=== PATIENT | male | born 1970 | race Caucasian/White ===

== ENCOUNTER 2022-01-07 18:15 | Emergency (ER) | payer SELFPAY ==
[2022-01-07 18:37] VITALS: PULSE 71; RESP 20; TEMP 37.6; BMI 21.2
[2022-01-07 20:24] VITALS: BP 139/100; PULSE 79; RESP 16; TEMP 37.1; O2SAT 98; BMI 20.6
--- NOTE | 2022-01-07 20:36 | HMH.EDUTC ---
[facility] [place] Disposition Clinical Impression: Abscess of right axilla Cellulitis Qualifiers: Site of cellulitis: extremity Site of cellulitis of extremity: axilla Laterality: right Qualified Code(s): L03.111 - Cellulitis of right axilla Disposition: Home, Self-Care Condition on Discharge: Good Instructions: Cellulitis, Boil Additional Instructions: Follow up in 3 days to have the packing removed and the wound rechecked. Also, we will be culturing the drainage from the wound and that will be complete in 3 days. This will tell which antibiotic will treat the infection best. So, we will probably be able to stop one of the antibiotics then. Take the antibiotics as directed. Follow up with your regular doctor. Take ibuprofen for pain. I sent in a prescription for it to your pharmacy. GO TO THE ER FOR ANY WORSENING SYMPTOMS OR CONCERNS Prescriptions: Amoxicillin [Amoxicillin 500mg Tab] 500 mg PO TID 10 Days #30 tab Transmission Status: Received by [id number] Sulfamethoxazole/Trimethoprim [Bactrim DS tablet] 1 each PO BID 10 Days #20 tab Transmission Status: Received by [id number] Referrals: Provider,Referral, [Primary Care Provider] - Forms: Work/School Release Time of Disposition: 22:15 Medical Decision Making - Medical Records Medical records reviewed: No: I reviewed the patient's medical records. - Daniel Inquiry Pt receiving controlled substance: No Vital Signs: 01/07/22 18:37 01/07/22 20:24 01/07/22 22:27 Temperature 99.7 F H 98.8 F 98.8 F Temperature Source Oral Oral Pulse Rate 79 Pulse Rate [Radial] 71 79 Respiratory Rate 20 16 16 Blood Pressure 139/100 H Blood Pressure [Right Arm] 139/100 H Blood Pressure Mean [Right Arm] 113 02 Sat by Pulse Oximetry 98 Oxygen Delivery Method Room Air Orders (Tests/Meds): ED MEDICATIONS Discontinued Medications Generic Name Dose Route Start Last Admin Trade Name Freq PRN Reason Stop Dose Admin Amoxicillin 500 mg 01/07/22 22:12 01/07/22 22:18 Amoxicillin 500mg Capsule PO 01/07/22 22:13 500 mg ONCE ONE Administration Ibuprofen 800 mg 01/07/22 22:12 01/07/22 22:23 Ibuprofen 400 Mg Tablet PO 01/07/22 22:13 Not Given ONCE ONE Ondansetron HCl 4 mg 01/07/22 22:16 01/07/22 22:18 Ondansetron 4mg Odt SL 01/07/22 22:17 4 mg ONCE ONE Administration Trimethoprim/Sulfamethoxazole 1 each 01/07/22 22:12 01/07/22 22:18 Sulfa/Trimethoprim 1 Tablet PO 01/07/22 22:13 1 each ONCE ONE Administration ORDERS Category Date Time Status Wound Culture and Gram Stain Stat Micro 01/07/22 20:18 Results [facility] [place] HPI - General Stated complaint: spot under r ARM Time Seen by Provider: 01/07/22 20:36 Mode of Arrival: Ambulatory Source of Information: Patient Limitations: No Limitations Description of Symptoms (Recalled from Triage Doc. by RN): pt presents with a cyst to his R axilla larger than a golf ball. the area is red, hot, and swollen. there is a small opening with [place] drainage. HEENT Symptoms (Recalled from RN notes): No Resp Symptoms (Recalled from RN notes): No Skin Symptoms (Recalled from RN notes): No MS Symptoms (Recalled from RN notes): No Functional Status (Recalled from RN notes): wnl - History of Present Illness Provider Complaint: He has a infected area under his right arm. It has been present for about 1 week and it is very painful and swollen. - Related Data Previous Rx's Medication Instructions Recorded Amoxicillin [Amoxicillin 500mg Tab] 500 mg PO TID 10 Days #30 tab 01/07/22 Sulfamethoxazole/Trimethoprim 1 each PO BID 10 Days #20 tab 01/07/22 [Bactrim DS tablet] Allergies Allergy/AdvReac Type Severity Reaction Status Date / Time Cephalosporins Allergy Verified 01/07/22 20:28 - Worker's Comp Is this a Worker's Comp case?: No [facility] History - Hepatitis A Screen Drug use history?: No High risk sexual behaviors?: No History
[2022-01-07 22:27] VITALS: BP 139/100; PULSE 79; RESP 16; TEMP 37.1
== END 2022-01-07 22:28 | disposition home or self-care (01) ==
PROVIDERS: Emergency Provider Nurse Practitioner Family
DX: L03.111 Cellulitis of right axilla (principal)
CPT/HCPCS: 10060; 87070; 87205; 99202; G0463

== ENCOUNTER 2022-01-11 10:20 | Emergency (ER) | payer SELFPAY ==
[2022-01-11 10:40] VITALS: BP 137/80; PULSE 77; RESP 16; TEMP 36.8; O2SAT 98
== END 2022-01-11 10:40 | disposition home or self-care (01) ==
PROVIDERS: Emergency Provider Nurse Practitioner
DX: L03.111 Cellulitis of right axilla (principal)
CPT/HCPCS: 99211; G0463